=== PATIENT | male | born 1940 | race Caucasian/White ===

== ENCOUNTER → 2017-03-06 | Outpatient (CLI) | payer MEDICARE, BC ==
[~2017-03-06] MED LIST: ALLERGY10 M2 PO; ASPIRIN81 M2 PO; IBUPROFEN PO; IBUPROFEN400 MG PO; LAMISIL PO; MULTIPLE VITAMI1 T11 PO; VITAMIN D2000 UNI1 PO
--- NOTE | ~2017-03-06 | ST ---
Unit #: [id number] #: [id number] Patient: COLLINS FINLEY [id number] [address] [address] [id number] O MR#: [id number] NAME: COLLINS FINLEY. : 1940 SEX: M STUDY DATE/TIME: 03/08/2017 UN[facility]: [facility] ROOM: STUDY DESCRIPTION: Stress nuclear study Attending Physician: Siva Willis M.D. Referring Physician: Siva Willis M.D. Primary Care Physician: Jasiel Win M.D. CARDIOLOGY REPORT INDICATION Irregular heartbeat, left shoulder discomfort. SUMMARY Patient exercised under Marshall protocol to maximal effort. Full results are reported separately, but briefly they showed no diagnostic ST changes. Patient completed 4 minutes of exercise under protocol. heart rate increased from 85 to 133 (93%) and blood pressure increased 126/63 to 168/76. Technetium 99 Cardiolite 11.75 and 32.5 mCi was injected at rest and stress respectively. Appropriate views were obtained. FINDINGS Perfusion images demonstrate breast attenuation artifact, both at rest and stress. Otherwise perfusion is normal and equivalent between rest and stress. There is slightly more intestinal artifact at rest than in stress. Planar images demonstrate mild patient motion with stress, less at rest. There is no significant lung uptake, LV or RV enlargement. End-diastolic volume is 80 mL, ejection fraction 59%. Mild hypokinesis of the septum, in the area associated with chest wall and breast attenuation artifact. Summed stress scores is 0. IMPRESSION 1. Myocardial perfusion scan shows no ischemia or infarction. 2. Mild deconditioning based on the patient's age. 3. Normal heart rate and blood pressure response. 4. Normal stress ECG. Dictated by... Grecia Lassiter/gal TD: 03/11/2017 15:56 JOB #: [id number] Unit #: [id number] #: [id number] Patient: COLLINS FINLEY CARDIOLOGY REPORT Page 1 of 1 X Bola Bro MD CARDIOLOGY REPORT
--- NOTE | ~2017-03-06 | ST ---
Unit #: [id number] #: [id number] Patient: COLLINS FINLEY [id number] [address] [address] [id number] O MR#: [id number] NAME: COLLINS FINLEY. : 1940 SEX: M STUDY DATE/TIME: 03/06/2017 UNIT: [facility] ROOM: STUDY DESCRIPTION: Attending Physician: Siva Willis M.D. Referring Physician: Siva Willis M.D. Primary Care Physician: Jasiel Win M.D. CARDIOLOGY REPORT EXAM Exercise Cardiolite stress test. FINDINGS Baseline EKG: Normal sinus rhythm with ventricular rate 72 beats per minute, poor R-wave progression, nondiagnostic Q waves in inferolateral leads. PROCEDURE The patient walked on the treadmill for 7 minutes utilizing Marshall protocol, achieving a workload of 7 METs. Next, 93% of maximum target heart rate achieved at 134 beats per minute with maximum blood pressure response of 168/76 mmHg. EKG during the test was equivocal to baseline. No acute ischemic changes. The patient had no complaints of chest pain, palpitations, or dizziness. Had increased shortness of breath and fatigueness which resolved in recovery phase. IMPRESSION 1. Functional class III with a workload of 7 METs. 2. The patient walked for 7 minutes, achieving 93% of maximum target heart rate at 134 beats per minute with a normotensive blood pressure response. 3. EKG during the test was equivocal to baseline. No acute ischemic changes. 4. Patient had no complaints of chest pain, palpitations, or dizziness. Had increased shortness of breath and fatigueness which resolved in recovery phase. 5. Cardiolite was injected at maximum target heart rate. Radionuclide tests pending. Please correlate with nuclear images. Dictated by... Aileen West, Enma.[email or web address]. for Siva Willis M.D. YAQUELIN/cristiane TD: 03/06/2017 09:30 JOB #: [id number] Unit #: [id number] #: [id number] Patient: COLLINS FINLEY CARDIOLOGY REPORT Page 1 of 1 X Aileen West APRN CARDIOLOGY REPORT
== END | disposition home or self-care (01) ==
LOC: CNUC 06:42
DX: R07.9 Chest pain, unspecified (principal); E78.5 Hyperlipidemia, unspecified
CPT/HCPCS: 78452; 93017; A9500